=== PATIENT | female | born 1945 | race Caucasian/White ===

== ENCOUNTER → 2017-06-26 | Outpatient (CLI) | payer OTHER ==
[~2017-06-26] MED LIST: BUDEPRION SR150 MG PO; BUSPAR15 MG PO; NEXIUM; NEXIUM40 MG PO; PAROXETINE HCL20 MG PO; SANCTURA; SANCTURA20 MG PO; SIMVASTATIN; SIMVASTATIN40 MG PO; VITAMIN D 5050000 I1 PO
== END ==
LOC: RAD 00:45
DX: Z12.31 Encounter for screening mammogram for malignant neoplasm of breast (principal)

== ENCOUNTER → 2018-06-23 | Outpatient (CLI) | payer OTHER | LOC: BC 01:07 | DX: C50.912 Malignant neoplasm of unspecified site of left female breast (principal); N60.02 Solitary cyst of left breast; N64.89 Other specified disorders of breast ==

== ENCOUNTER → 2019-03-09 | Outpatient (CLI) | payer OTHER | LOC: RAD 02-25 10:13 | DX: N64.89 Other specified disorders of breast (principal); C50.919 Malignant neoplasm of unspecified site of unspecified female breast ==

== ENCOUNTER → 2019-11-25 | Outpatient (CLI) | payer OTHER | LOC: BC 12:24 | PROVIDERS: ATTEND Internal Medicine | DX: Z12.31 Encounter for screening mammogram for malignant neoplasm of breast (principal) ==

== ENCOUNTER → 2020-10-11 | Outpatient (CLI) | payer OTHER | LOC: BC 09:10 | PROVIDERS: ATTEND Internal Medicine | DX: N64.89 Other specified disorders of breast (principal); N64.4 Mastodynia ==

== ENCOUNTER → 2021-02-09 | Outpatient (CLI) | payer OTHER | LOC: BC 10:36 | PROVIDERS: ATTEND Internal Medicine | DX: Z12.31 Encounter for screening mammogram for malignant neoplasm of breast (principal) ==